=== PATIENT | male | born 1990 | race African-American/Black ===

== ENCOUNTER 2019-01-15 17:00 | Emergency (ER) | payer OTHER ==
[~2019-01-15] VITALS: Ht 175.3 cm; Wt 73.5 kg
[2019-01-15] MEDS ORDERED: NAPROXEN500 MG PO (17:58)
[2019-01-15 18:08] VITALS: BP 125/78
== END 2019-01-15 18:16 | disposition home or self-care (01) ==
LOC: ER 17:00
DX: S90.32XA Contusion of left foot, initial encounter (principal); W18.39XA Other fall on same level, initial encounter; Y92.89 Other specified places as the place of occurrence of the external cause; Y93.89 Activity, other specified; Y99.8 Other external cause status